=== PATIENT | male | born 1960 | race Caucasian/White ===

== ENCOUNTER 2019-06-26 16:48 | Emergency (ER) | payer SELFPAY ==
[2019-06-26 16:59] VITALS: BMI 33.0
--- NOTE | 2019-06-26 17:02 | PDOC ---
Rapid Medical Evaluation Chief Complaint: Wound Time Seen by Provider: 06/26/19 16:56 Medical Evaluation: 06/26/19 16:57 Pt with a puncture wound to his L second finger with a wood and metal post approximately 10 days ago. States that it is now swollen and painful. Feels feverish at times. Tetanus UTD 2017. Pt is R hand dominant Exam: Unable to flex L 2nd finger, pain with passive flexion. Sausage like appearance Orders: Labs, IV, X-ray Pt to proceed to the ER for evaluation Discharge Disposition - Diagnosis Finger pain Qualifiers: Laterality: bilateral Qualified Code(s): M79.645 - Pain in left finger(s); M79.644 - Pain in right finger(s) - Referrals - Patient Instructions - Post Discharge Activity
--- NOTE | 2019-06-26 18:05 | PDOC ---
History of Present Illness - General Chief Complaint: Wound Stated Complaint: Puncture Wound Time Seen by Provider: 06/26/19 16:56 History Source: Patient - History of Present Illness Associated Symptoms: denies: fever/chills, malaise Past History - Past Medical History Allergies/Adverse Reactions: Allergies Allergy/AdvReac Type Severity Reaction Status Date / Time No Known Allergies Allergy Verified 06/26/19 16:59 Home Medications: Ambulatory Orders NK [No Known Home Medication] 06/26/19 COPD: No - Immunization History Immunization Up to Date: Yes (2016) - Suicide/Smoking/Psychosocial Hx Smoking History: Never smoked Review of Systems - Review of Systems Constitutional: No: Chills, Fever *Physical Exam - Vital Signs Last Vital Signs Temp Pulse Resp BP Pulse Ox 97.6 F 96 H 18 131/86 99 06/26/19 16:56 06/26/19 16:56 06/26/19 16:56 06/26/19 16:56 06/26/19 16:56 - Physical Exam General Appearance: Yes: Appropriately Dressed. No: Apparent Distress HEENT: positive: Normal Voice Neck: positive: Supple Respiratory/Chest: negative: Respiratory Distress Extremity: positive: Other (L index finger diffusely swollen and tender w/ pustule visualized to volar aspect of middle phalanx, no erythema, no sig pain to digit w/ movement) Integumentary: positive: Dry, Warm Neurologic: positive: Fully Oriented, Alert, Normal Mood/Affect ED Treatment Course - LABORATORY CBC & Chemistry Diagram: 06/26/19 18:06 06/26/19 18:06 - RADIOLOGY Radiology Studies Ordered: Category Date Time Status FINGER(S) LEFT [RAD] Stat Radiology 06/26/19 17:59 Ordered Medical Decision Making - Medical Decision Making 06/26/19 18:00 58 yo M, no sig hx, here w/ L finger pain and swelling. Pt states while placing a pole in a pickup truck 10 days ago, a sharp object (wood vs metal), punctured L index finger. Did not come to ED then as was not having any sig pain but since then, sxs have worsen. No f/c. Tetanus 2 years ago per pt See exam L index index abscess/cellulitis s/p puncture wound 10 days ago No systemic sxs -Tetanus UTD -IV abx -XR r/o retained fb vs osteo -labs -hand consult -admit 06/26/19 18:57 XR neg for obvious fb or bony destruction. Labs pending. Signed out to CINTIA Mckeon pending hand c/s and admission *DC/Admit/Observation/Transfer Diagnosis at time of Disposition: Cellulitis and abscess of finger, unspecified - Discharge Dispostion Condition at time of disposition: Fair - Referrals - Patient Instructions - Post Discharge Activity
[2019-06-26 18:20] LABS: BASO % 0.7 % (0-2.0); EOS % 0.6 % (0-4.5); HEMATOCRIT 43.3 % (35.4-49); HEMOGLOBIN 15.5 GM/dL (11.7-16.9); LYMPH % 34.7 % (8-40); MCH 31.5 pg (25.7-33.7); MCHC 35.8 g/dl (32.0-35.9); MEAN PLT VOLUME 8.3 fl (7.5-11.1); MONO % 8.9 % (3.8-10.2); NEUT % 55.1 % (42.8-82.8); PLATELET COUNT 280 K/MM3 (134-434); RBC 4.92 M/mm3 (4.00-5.60); RDW 12.5 % (11.9-15.9); WHITE BLOOD COUNT 8.3 K/mm3 (4.0-10.0)
[2019-06-26 18:43] LABS: INR 1.08 (0.83-1.09); PROTHROMBIN TIME (PATIENT) 12.7 SEC (9.7-13.0)
[2019-06-26] MEDS ORDERED: CEFAZOLIN 1 GM PUSH 1 GM/10 ML SYRINGE IVPUSH ONE (18:43)
[2019-06-26] MEDS ORDERED: VANCOMYCIN 1,000 MG in DEXTROSE 5%-WATER - 250 ML IVPB ONE (18:44)
[2019-06-26 18:52] LABS: BILIRUBIN,TOTAL 0.5 mg/dL (0.2-1); BLOOD UREA NITROGEN 8.4 mg/dL (7-18); CREATININE 0.9 mg/dL (0.55-1.3); TOT PROT 7.6 g/dl (6.4-8.2)
[2019-06-26] MEDS ORDERED: VANCOMYCIN 1 GRAM (PRE-DOCKED) 1,000 MG/250 ML BAG IVPB ONE ×2 (19:09→19:11)
--- NOTE | 2019-06-26 19:17 | PDOC ---
*Physical Exam - Vital Signs Last Vital Signs Temp Pulse Resp BP Pulse Ox 97.6 F 96 H 18 131/86 99 06/26/19 16:56 06/26/19 16:56 06/26/19 16:56 06/26/19 16:56 06/26/19 16:56 - Physical Exam General Appearance: Yes: Appropriately Dressed ED Treatment Course - LABORATORY CBC & Chemistry Diagram: 06/26/19 18:06 06/26/19 18:06 - ADDITIONAL ORDERS Additional order review: Laboratory Results 06/26/19 06/26/19 18:06 18:06 PT with INR 12.70 INR 1.08 Sodium 139 Potassium 4.0 Chloride 105 Carbon Dioxide 24 Anion Gap 10 BUN 8.4 Creatinine 0.9 Est GFR (CKD-EPI)AfAm 107.22 Est GFR (CKD-EPI)NonAf 92.51 Random Glucose 152 H Calcium 9.0 Total Bilirubin 0.5 AST 23 ALT 30 Alkaline Phosphatase 77 Total Protein 7.6 Albumin 4.0 06/26/19 18:06 RBC 4.92 MCV 88.0 MCHC 35.8 RDW 12.5 MPV 8.3 Neutrophils % 55.1 Lymphocytes % 34.7 Monocytes % 8.9 Eosinophils % 0.6 Basophils % 0.7 Medical Decision Making - Medical Decision Making 06/26/19 20:[address] villagran. recommends superficial draining and follow up in the office in the am. patient also seen and evaluated by Dr. chowdhury. after evaluation withh needle drain and PO antibiotics. patient to return to the ED in 24 hours for wound check or Dr. villagran in the am tomorrow for hand evaluation. patient prefers wound eval with dr. villagran. Patient gave verbal consent. 18 g needle lightly inserted to middle phalanx superficially and drained~ 0.5 clear pus. wound culture send. patient will be send on clinidamycin. patient to follow up with dr. Villagran in the am or return to the ER for wound reevaluation *DC/Admit/Observation/Transfer Diagnosis at time of Disposition: Cellulitis and abscess of finger, unspecified - Discharge Dispostion Disposition: HOME Condition at time of disposition: Good - Prescriptions Prescriptions: Clindamycin HCl [Cleocin HCl] 150 mg PO QID #40 capsule - Referrals - Patient Instructions Printed Discharge Instructions: DI for Wound Infection Additional Instructions: warm soaks to your finger every 3- hours. take clindamycin as prescribed. please follow up with Dr Mendez office first thing in the morning. if unable to follow up return to the ER in 24 hours for a wound check. - Post Discharge Activity
[2019-06-26 20:33] LABS: PH,URINE 7.5 (5.0-8.0); URINE APPEARANCE CLEAR; URINE BILIRUBIN NEGATIVE (NEGATIVE); URINE COLOR YELLOW; URINE GLUCOSE (UA) NEGATIVE (NEGATIVE); URINE KETONE NEGATIVE (NEGATIVE); URINE LEUK ESTERASE NEGATIVE (NEGATIVE); URINE NITRITE NEGATIVE (NEGATIVE); URINE PROTEIN NEGATIVE (NEGATIVE)
[2019-06-26 22:42] VITALS: BP 132/78; PULSE 86; TEMP 97.9
== END 2019-06-26 22:42 | disposition home or self-care (01) ==
LOC: JER 16:48
DX: S61.231A Puncture wound without foreign body of left index finger without damage to nail, initial encounter (principal); L03.012 Cellulitis of left finger; W26.8XXA Contact with other sharp object(s), not elsewhere classified, initial encounter; Y93.89 Activity, other specified; Y92.89 Other specified places as the place of occurrence of the external cause; Y99.8 Other external cause status
CPT/HCPCS: 36415; 73140-TC-LT-FY; 80053; 81003; 85025; 85610; 86850; 86900; 86901; 87070; 87205; 99283-25